=== PATIENT | male | born 1955 | race African-American/Black ===

== ENCOUNTER → 2020-10-31 | Outpatient (CLI) | payer BC | LOC: WCC 10:28 | PROVIDERS: ATTEND Family Medicine | DX: E10.621 Type 1 diabetes mellitus with foot ulcer (principal); E10.628 Type 1 diabetes mellitus with other skin complications; L97.519 Non-pressure chronic ulcer of other part of right foot with unspecified severity; G99.0 Autonomic neuropathy in diseases classified elsewhere; M86.68 Other chronic osteomyelitis, other site; N18.9 Chronic kidney disease, unspecified; I10 Essential (primary) hypertension; Z89.411 Acquired absence of right great toe | CPT/HCPCS: 36415; 82948; 87071; 87075; 87186; 87205 ==

== ENCOUNTER → 2020-11-07 | Outpatient (CLI) | payer BC | LOC: WCC 10:16 | PROVIDERS: ATTEND Family Medicine | DX: E10.621 Type 1 diabetes mellitus with foot ulcer (principal); E10.628 Type 1 diabetes mellitus with other skin complications; L97.519 Non-pressure chronic ulcer of other part of right foot with unspecified severity; M86.68 Other chronic osteomyelitis, other site; N18.9 Chronic kidney disease, unspecified; I10 Essential (primary) hypertension; G99.0 Autonomic neuropathy in diseases classified elsewhere; B96.89 Other specified bacterial agents as the cause of diseases classified elsewhere; Z89.411 Acquired absence of right great toe ==

== ENCOUNTER → 2020-11-14 | Outpatient (CLI) | payer BC | LOC: WCC 10:52 | PROVIDERS: ATTEND Podiatrist | DX: E10.628 Type 1 diabetes mellitus with other skin complications (principal); E10.621 Type 1 diabetes mellitus with foot ulcer; L98.491 Non-pressure chronic ulcer of skin of other sites limited to breakdown of skin; L97.519 Non-pressure chronic ulcer of other part of right foot with unspecified severity; M86.68 Other chronic osteomyelitis, other site; N18.9 Chronic kidney disease, unspecified; I10 Essential (primary) hypertension; B96.89 Other specified bacterial agents as the cause of diseases classified elsewhere; G99.0 Autonomic neuropathy in diseases classified elsewhere ==

== ENCOUNTER → 2020-11-14 | Outpatient (CLI) | payer BC | LOC: RAD 12:07 | PROVIDERS: ATTEND Family Medicine | DX: E10.621 Type 1 diabetes mellitus with foot ulcer (principal); L97.519 Non-pressure chronic ulcer of other part of right foot with unspecified severity ==

== ENCOUNTER → 2020-12-05 | Outpatient (CLI) | payer BC ==
[~2020-12-05] MED LIST: COLLAGENASE OINTMENT 30 GM TUBE ONE; LIDOCAINE VISC 2% SOLN 15 ML UDC ONE
== END ==
LOC: WCC 08:59
PROVIDERS: ATTEND Family Medicine
DX: E10.621 Type 1 diabetes mellitus with foot ulcer (principal); M86.68 Other chronic osteomyelitis, other site; L97.511 Non-pressure chronic ulcer of other part of right foot limited to breakdown of skin; L98.491 Non-pressure chronic ulcer of skin of other sites limited to breakdown of skin; L97.519 Non-pressure chronic ulcer of other part of right foot with unspecified severity; N18.9 Chronic kidney disease, unspecified; I10 Essential (primary) hypertension; G99.0 Autonomic neuropathy in diseases classified elsewhere; B96.89 Other specified bacterial agents as the cause of diseases classified elsewhere

== ENCOUNTER → 2020-12-14 | Outpatient (CLI) | payer BC | LOC: WCC 09:34 | PROVIDERS: ATTEND Family Medicine | DX: E10.628 Type 1 diabetes mellitus with other skin complications (principal); L97.511 Non-pressure chronic ulcer of other part of right foot limited to breakdown of skin; M86.68 Other chronic osteomyelitis, other site; N18.9 Chronic kidney disease, unspecified; I10 Essential (primary) hypertension; B96.89 Other specified bacterial agents as the cause of diseases classified elsewhere; G99.0 Autonomic neuropathy in diseases classified elsewhere ==

== ENCOUNTER → 2020-12-19 | Outpatient (CLI) | payer BC ==
[~2020-12-19] MED LIST changes: -COLLAGENASE OINTMENT 30 GM TUBE ONE; -LIDOCAINE VISC 2% SOLN 15 ML UDC ONE; +LIDOCAINE/PRILOCAINE 2.5-2.5% KIT ONE
== END ==
LOC: WCC 09:31
PROVIDERS: ATTEND Family Medicine
DX: E10.628 Type 1 diabetes mellitus with other skin complications (principal); M86.68 Other chronic osteomyelitis, other site; L97.511 Non-pressure chronic ulcer of other part of right foot limited to breakdown of skin; G99.0 Autonomic neuropathy in diseases classified elsewhere; N18.9 Chronic kidney disease, unspecified; I10 Essential (primary) hypertension; B96.89 Other specified bacterial agents as the cause of diseases classified elsewhere

== ENCOUNTER → 2020-12-24 | Outpatient (CLI) | payer BC | LOC: MRI 12-05 11:38 | PROVIDERS: ATTEND Family Medicine | DX: E11.621 Type 2 diabetes mellitus with foot ulcer (principal); L97.511 Non-pressure chronic ulcer of other part of right foot limited to breakdown of skin ==

== ENCOUNTER → 2020-12-26 | Outpatient (CLI) | payer BC | LOC: WCC 08:12 | PROVIDERS: ATTEND Family Medicine | DX: E10.628 Type 1 diabetes mellitus with other skin complications (principal); L97.511 Non-pressure chronic ulcer of other part of right foot limited to breakdown of skin; M86.671 Other chronic osteomyelitis, right ankle and foot; M86.68 Other chronic osteomyelitis, other site; G99.0 Autonomic neuropathy in diseases classified elsewhere; N18.9 Chronic kidney disease, unspecified; I10 Essential (primary) hypertension; B96.89 Other specified bacterial agents as the cause of diseases classified elsewhere ==

== ENCOUNTER → 2020-12-28 | Outpatient (CLI) | payer BC | LOC: WCC 09:16 | PROVIDERS: ATTEND Family Medicine | DX: E10.628 Type 1 diabetes mellitus with other skin complications (principal); L97.511 Non-pressure chronic ulcer of other part of right foot limited to breakdown of skin; M86.671 Other chronic osteomyelitis, right ankle and foot; M86.68 Other chronic osteomyelitis, other site; N18.9 Chronic kidney disease, unspecified; I10 Essential (primary) hypertension; G99.0 Autonomic neuropathy in diseases classified elsewhere; B96.89 Other specified bacterial agents as the cause of diseases classified elsewhere ==

== ENCOUNTER → 2021-01-01 | Outpatient (CLI) | payer BC ==
[2021-01-01 12:40] LABS: HEMOGLOBIN 10.6 g/dL (14.0-18.0)
== END ==
LOC: DX 12:15
PROVIDERS: ATTEND Internal Medicine Infectious Disease
DX: Z45.2 Encounter for adjustment and management of vascular access device (principal)
CPT/HCPCS: 36415; 36569; 71045; 85014; 85049

== ENCOUNTER → 2021-01-18 | Outpatient (CLI) | payer BC | LOC: WCC 09:51 | PROVIDERS: ATTEND Family Medicine | DX: E10.628 Type 1 diabetes mellitus with other skin complications (principal); M86.671 Other chronic osteomyelitis, right ankle and foot; M86.68 Other chronic osteomyelitis, other site; L97.511 Non-pressure chronic ulcer of other part of right foot limited to breakdown of skin; N18.9 Chronic kidney disease, unspecified; I10 Essential (primary) hypertension; G99.0 Autonomic neuropathy in diseases classified elsewhere; B96.89 Other specified bacterial agents as the cause of diseases classified elsewhere ==

== ENCOUNTER → 2021-01-23 | Outpatient (CLI) | payer BC ==
[2021-01-23 10:31] LABS: BASOPHILS % 0.3 % (0.0-1.0); EOSINOPHILS # (AUTO) 0.1 (0.0-0.4); EOSINOPHILS % 1.2 % (0.0-6.0); HEMOGLOBIN 12.1 g/dL (14.0-18.0); LYMPHOCYTES # (AUTO) 1.6 (1.0-3.2); LYMPHOCYTES % 22.4 % (18.0-39.1); MEAN CORPUSCULAR HEMOGLOBIN 27.6 pg (28-32); MONOCYTES # (AUTO) 0.7 (0.2-0.8); MONOCYTES % 9.5 % (4.4-11.3); NEUTROPHILS # (AUTO) 4.6 (2.1-6.9); NEUTROPHILS % 65.9 % (38.7-80.0); PLATELET COUNT 302 x10e3/uL (140-360); RED BLOOD COUNT 4.38 x10e6/uL (4.3-5.7); RED CELL DISTRIBUTION WIDTH 13.2 % (11.7-14.4)
[2021-01-23 10:54] LABS: ALBUMIN 3.5 g/dL (3.5-5.0); ALBUMIN/GLOBULIN RATIO 0.7 (0.8-2.0); ANION GAP 17.2 mmol/L (8-16); CREATININE, SERUM 3.15 mg/dL (0.72-1.25); POTASSIUM 5.2 mmol/L (3.5-5.1)
== END ==
LOC: WCC 08:16
PROVIDERS: ATTEND Family Medicine
DX: E10.628 Type 1 diabetes mellitus with other skin complications (principal); M86.671 Other chronic osteomyelitis, right ankle and foot; M86.68 Other chronic osteomyelitis, other site; L97.511 Non-pressure chronic ulcer of other part of right foot limited to breakdown of skin; N18.9 Chronic kidney disease, unspecified; I10 Essential (primary) hypertension; B96.89 Other specified bacterial agents as the cause of diseases classified elsewhere; G99.0 Autonomic neuropathy in diseases classified elsewhere
CPT/HCPCS: 36415; 80053; 83036; 84134; 85025

== ENCOUNTER → 2021-01-30 | Outpatient (CLI) | payer BC | LOC: WCC 09:33 | PROVIDERS: ATTEND Family Medicine | DX: E10.628 Type 1 diabetes mellitus with other skin complications (principal); M86.671 Other chronic osteomyelitis, right ankle and foot; M86.68 Other chronic osteomyelitis, other site; L97.511 Non-pressure chronic ulcer of other part of right foot limited to breakdown of skin; N18.9 Chronic kidney disease, unspecified; I10 Essential (primary) hypertension; G99.0 Autonomic neuropathy in diseases classified elsewhere; B96.89 Other specified bacterial agents as the cause of diseases classified elsewhere ==

== ENCOUNTER → 2021-02-06 | Outpatient (CLI) | payer BC | LOC: WCC 09:50 | PROVIDERS: ATTEND Family Medicine | DX: E10.628 Type 1 diabetes mellitus with other skin complications (principal); M86.671 Other chronic osteomyelitis, right ankle and foot; M86.68 Other chronic osteomyelitis, other site; L97.511 Non-pressure chronic ulcer of other part of right foot limited to breakdown of skin; N18.9 Chronic kidney disease, unspecified; I10 Essential (primary) hypertension; G99.0 Autonomic neuropathy in diseases classified elsewhere; B96.89 Other specified bacterial agents as the cause of diseases classified elsewhere ==

== ENCOUNTER → 2021-02-13 | Outpatient (CLI) | payer BC | LOC: WCC 09:18 | PROVIDERS: ATTEND Internal Medicine Infectious Disease | DX: E10.628 Type 1 diabetes mellitus with other skin complications (principal); M86.671 Other chronic osteomyelitis, right ankle and foot; M86.68 Other chronic osteomyelitis, other site; L97.511 Non-pressure chronic ulcer of other part of right foot limited to breakdown of skin; G99.0 Autonomic neuropathy in diseases classified elsewhere; N18.9 Chronic kidney disease, unspecified; I10 Essential (primary) hypertension; B96.89 Other specified bacterial agents as the cause of diseases classified elsewhere ==

== ENCOUNTER → 2021-03-13 | Outpatient (CLI) | payer BC | LOC: WCC 09:12 | PROVIDERS: ATTEND Family Medicine | DX: E10.628 Type 1 diabetes mellitus with other skin complications (principal); M86.671 Other chronic osteomyelitis, right ankle and foot; M86.68 Other chronic osteomyelitis, other site; L97.511 Non-pressure chronic ulcer of other part of right foot limited to breakdown of skin; G99.0 Autonomic neuropathy in diseases classified elsewhere; N18.9 Chronic kidney disease, unspecified; I10 Essential (primary) hypertension ==

== ENCOUNTER → 2021-03-27 | Outpatient (CLI) | payer BC ==
[2021-03-27 13:48] LABS: BASOPHILS % 0.6 % (0.0-1.0); EOSINOPHILS # (AUTO) 0.1 (0.0-0.4); EOSINOPHILS % 1.6 % (0.0-6.0); HEMATOCRIT 37.5 % (38.2-49.6); LYMPHOCYTES # (AUTO) 1.7 (1.0-3.2); LYMPHOCYTES % 27.7 % (18.0-39.1); MEAN CORPUSCULAR HEMOGLOBIN 26.8 pg (28-32); MEAN CORPUSCULAR HGB CONC 29.3 g/dL (31-35); MEAN CORPUSCULAR VOLUME 91.2 fL (81-99); MONOCYTES # (AUTO) 0.5 (0.2-0.8); MONOCYTES % 7.9 % (4.4-11.3); NEUTROPHILS # (AUTO) 3.8 (2.1-6.9); NEUTROPHILS % 61.1 % (38.7-80.0); PLATELET COUNT 307 x10e3/uL (140-360); RED BLOOD COUNT 4.11 x10e6/uL (4.3-5.7); RED CELL DISTRIBUTION WIDTH 13.9 % (11.7-14.4)
[2021-03-27 14:16] LABS: ALBUMIN 3.2 g/dL (3.5-5.0); ALBUMIN/GLOBULIN RATIO 0.7 (0.8-2.0); ANION GAP 13.5 mmol/L (8-16); CALCIUM 9.9 mg/dL (8.4-10.2); CREATININE, SERUM 2.79 mg/dL (0.72-1.25); POTASSIUM 4.5 mmol/L (3.5-5.1)
== END ==
LOC: WCC 10:43
PROVIDERS: ATTEND Family Medicine
DX: E11.621 Type 2 diabetes mellitus with foot ulcer (principal); M86.671 Other chronic osteomyelitis, right ankle and foot; M86.68 Other chronic osteomyelitis, other site; L97.511 Non-pressure chronic ulcer of other part of right foot limited to breakdown of skin; N18.9 Chronic kidney disease, unspecified; I10 Essential (primary) hypertension; G99.0 Autonomic neuropathy in diseases classified elsewhere; Z85.51 Personal history of malignant neoplasm of bladder
CPT/HCPCS: 36415; 80053; 83036; 84134; 85025

== ENCOUNTER → 2021-04-03 | Outpatient (CLI) | payer BC | LOC: WCC 10:41 | PROVIDERS: ATTEND Family Medicine | DX: E11.621 Type 2 diabetes mellitus with foot ulcer (principal); M86.68 Other chronic osteomyelitis, other site; L97.511 Non-pressure chronic ulcer of other part of right foot limited to breakdown of skin; N18.9 Chronic kidney disease, unspecified; I10 Essential (primary) hypertension; G99.0 Autonomic neuropathy in diseases classified elsewhere; Z85.51 Personal history of malignant neoplasm of bladder ==

== ENCOUNTER → 2021-04-10 | Outpatient (CLI) | payer BC ==
[~2021-04-10] MED LIST changes: +LIDOCAINE VISC 2% SOLN 15 ML UDC ONE; -LIDOCAINE/PRILOCAINE 2.5-2.5% KIT ONE; +MUPIROCIN 2% OINT 22 GM TUBE ONE
== END ==
LOC: WCC 08:28
PROVIDERS: ATTEND Family Medicine
DX: E11.621 Type 2 diabetes mellitus with foot ulcer (principal); M86.68 Other chronic osteomyelitis, other site; L97.511 Non-pressure chronic ulcer of other part of right foot limited to breakdown of skin; N18.9 Chronic kidney disease, unspecified; I10 Essential (primary) hypertension; G99.0 Autonomic neuropathy in diseases classified elsewhere; Z85.51 Personal history of malignant neoplasm of bladder
CPT/HCPCS: 87071; 87075; 87205

== ENCOUNTER → 2021-04-24 | Outpatient (CLI) | payer BC | LOC: WCC 11:17 | PROVIDERS: ATTEND Family Medicine | DX: E11.621 Type 2 diabetes mellitus with foot ulcer (principal); M86.68 Other chronic osteomyelitis, other site; L97.511 Non-pressure chronic ulcer of other part of right foot limited to breakdown of skin; N18.9 Chronic kidney disease, unspecified; I10 Essential (primary) hypertension; G99.0 Autonomic neuropathy in diseases classified elsewhere; Z85.51 Personal history of malignant neoplasm of bladder ==

== ENCOUNTER → 2021-05-01 | Outpatient (CLI) | payer BC | LOC: WCC 10:47 | PROVIDERS: ATTEND Family Medicine | DX: E11.621 Type 2 diabetes mellitus with foot ulcer (principal); M86.68 Other chronic osteomyelitis, other site; L97.511 Non-pressure chronic ulcer of other part of right foot limited to breakdown of skin; N18.9 Chronic kidney disease, unspecified; I10 Essential (primary) hypertension; G99.0 Autonomic neuropathy in diseases classified elsewhere; Z85.51 Personal history of malignant neoplasm of bladder ==

== ENCOUNTER → 2021-05-08 | Outpatient (CLI) | payer BC | LOC: WCC 11:11 | PROVIDERS: ATTEND Family Medicine | DX: E11.621 Type 2 diabetes mellitus with foot ulcer (principal); M86.68 Other chronic osteomyelitis, other site; L97.511 Non-pressure chronic ulcer of other part of right foot limited to breakdown of skin; N18.9 Chronic kidney disease, unspecified; I10 Essential (primary) hypertension; G99.0 Autonomic neuropathy in diseases classified elsewhere; Z85.51 Personal history of malignant neoplasm of bladder ==